=== PATIENT | female | born 1965 | race Hispanic/Latino ===

== ENCOUNTER 2024-08-17 14:53 | Inpatient (IN) | payer OTHER ==
[~2024-08-17] VITALS: Ht 160 cm; Wt 86.2 kg
[2024-08-17] MEDS ORDERED: SODIUM CHLORIDE FLUSH 10 ML SYR IV PRN (15:30)
[2024-08-17 15:38] LABS: BASOPHILS # (AUTO) 0.1 (0.0-0.1); BASOPHILS % 0.5 % (0.0-1.0); EOSINOPHILS # (AUTO) 1.3 (0.0-0.4); EOSINOPHILS % 13.3 % (0.0-6.0); HEMOGLOBIN 12.4 g/dL (12.0-16.0); LYMPHOCYTES % 40.1 % (18.0-39.1); MEAN CORPUSCULAR HEMOGLOBIN 28.8 pg (28-32); MEAN CORPUSCULAR HGB CONC 30.2 g/dL (31-35); MEAN CORPUSCULAR VOLUME 95.3 fL (81-99); MONOCYTES # (AUTO) 0.6 (0.2-0.8); MONOCYTES % 5.7 % (4.4-11.3); NEUTROPHILS % 40.1 % (38.7-80.0); PLATELET COUNT 225 x10e3/uL (140-360); RED CELL DISTRIBUTION WIDTH 14.6 % (11.7-14.4); WHITE BLOOD COUNT 10.05 x10e3/uL (4.8-10.8)
[2024-08-17 16:27] LABS: ALANINE AMINOTRANSFERASE 18 IU/L (0-55); ALBUMIN 3.6 g/dL (3.5-5.0); ALKALINE PHOSPHATASE 62 IU/L (40-150); ANION GAP 16.9 mmol/L (8-16); BILIRUBIN,TOTAL 0.8 mg/dL (0.2-1.2); BLOOD UREA NITROGEN 22 mg/dL (7-26); BUN/CREATININE RATIO 17 (6-25); CALCIUM 9.6 mg/dL (8.4-10.2); CARBON DIOXIDE 16 mmol/L (22-29); CHLORIDE 109 mmol/L (98-107); CREATININE, SERUM 1.26 mg/dL (0.57-1.11); EST GLOMERULAR FILTRATION RATE 49 ML/MIN (>=60); GLUCOSE 177 mg/dL (74-118); POTASSIUM 4.9 mmol/L (3.5-5.1); SODIUM 137 mmol/L (136-145); TOTAL PROTEIN 7.3 g/dL (6.5-8.1)
[2024-08-17 16:43] LABS: TROPONIN I < 0.001 ng/mL (0-0.300)
[2024-08-17] MEDS ORDERED: ONDANSETRON HCL INJ 2MG/ML 2ML 2 MG/ML VIAL IV PRN (17:00)
[2024-08-17] MEDS ORDERED: SODIUM CHLORIDE FLUSH 10 ML SYR INJ PRN (17:00)
[2024-08-17 17:35] VITALS: PULSE 51; RESP 14; TEMP 98.6
[2024-08-17 19:00] VITALS: BP 110/75; PULSE 60; RESP 20; TEMP 97.5; O2SAT 100
[2024-08-17 20:00] VITALS: BP 102/55; PULSE 57; RESP 16; TEMP 97.6; O2SAT 100
[2024-08-17 21:00] VITALS: BP 118/79; PULSE 63; RESP 18; TEMP 97.3; O2SAT 100
[2024-08-17] MEDS ORDERED: CETIRIZINE HCL10 MG PO (21:33)
[2024-08-17] MEDS ORDERED: ELIQUIS5 MG PO (21:33)
[2024-08-17] MEDS ORDERED: LISINOPRIL2.5 MG PO (21:33)
[2024-08-17] MEDS ORDERED: MECLIZINE HCL25 MG PO (21:33)
[2024-08-17] MEDS ORDERED: ALBUTEROL2.5 MG/3 M IH (21:33)
[2024-08-17] MEDS ORDERED: METFORMIN HCL1000 MG PO (21:33)
[2024-08-17] MEDS ORDERED: ULTRAM 50MG50 MG PO (21:33)
[2024-08-17 23:57] VITALS: BP 102/55; PULSE 57; RESP 18; TEMP 97.6; O2SAT 100
[2024-08-18] VITALS (7 sets, daily range): BP systolic 80–112; BP diastolic 40–65; PULSE 52–84; RESP 17–20; TEMP 97.2–98.4; O2SAT 95–100
[2024-08-18 06:06] LABS: ALBUMIN 3.2 g/dL (3.5-5.0); ANION GAP 13.9 mmol/L (8-16); CALCIUM 8.7 mg/dL (8.4-10.2); CREATININE, SERUM 1.89 mg/dL (0.57-1.11); POTASSIUM 4.9 mmol/L (3.5-5.1); TOTAL PROTEIN 6.4 g/dL (6.5-8.1)
[2024-08-18 06:46] LABS: BASOPHILS # (AUTO) 0.1 (0.0-0.1); BASOPHILS % 0.9 % (0.0-1.0); EOSINOPHILS # (AUTO) 1.1 (0.0-0.4); EOSINOPHILS % 11.5 % (0.0-6.0); LYMPHOCYTES # (AUTO) 3.9 (1.0-3.2); LYMPHOCYTES % 42.5 % (18.0-39.1); MEAN CORPUSCULAR HEMOGLOBIN 28.6 pg (28-32); MEAN CORPUSCULAR HGB CONC 29.7 g/dL (31-35); MEAN CORPUSCULAR VOLUME 96.2 fL (81-99); MONOCYTES # (AUTO) 0.7 (0.2-0.8); MONOCYTES % 7.7 % (4.4-11.3); NEUTROPHILS # (AUTO) 3.4 (2.1-6.9); PLATELET COUNT 184 x10e3/uL (140-360); RED BLOOD COUNT 3.43 x10e6/uL (3.6-5.1); RED CELL DISTRIBUTION WIDTH 14.6 % (11.7-14.4); WHITE BLOOD COUNT 9.27 x10e3/uL (4.8-10.8)
[2024-08-18 06:48] LABS: HEMOGLOBIN 9.8 g/dL (12.0-16.0)
[2024-08-18] MEDS: MECLIZINE HCL 12.5 MG TAB PO SCH (08:57)
[2024-08-18] MEDS: APIXABAN 5 MG TABLET PO SCH (08:58)
[2024-08-18] MEDS ORDERED: MIDODRINE HCL 5 MG TABLET PO PRN (09:15)
[2024-08-18] MEDS: SODIUM CHLORIDE 0.9% 1000ML 1,000 ML IV SCH (10:45)
[2024-08-18] MEDS: LORAZEPAM INJ 2 MG/ML VIAL IV ONE (11:38)
[2024-08-18 11:46] LABS: % IRON SATURATION 19 % (15-50); IRON 79 ug/dL (50-170); TOTAL IRON BINDING CAPACITY 416 ug/dL (261-478); TRANSFERRIN 297 mg/dL (180-382)
[2024-08-18 11:53] LABS: FOLATE 32.3 ng/mL (7.0-15.4)
[2024-08-19] VITALS (8 sets, daily range): BP systolic 100–134; BP diastolic 46–70; PULSE 49–62; RESP 16–18; TEMP 97.6–98.4; O2SAT 99–100
[2024-08-19 05:56] LABS: BASOPHILS % 0.4 % (0.0-1.0); EOSINOPHILS # (AUTO) 0.8 (0.0-0.4); EOSINOPHILS % 11.9 % (0.0-6.0); HEMOGLOBIN 9.5 g/dL (12.0-16.0); LYMPHOCYTES # (AUTO) 2.8 (1.0-3.2); LYMPHOCYTES % 40.2 % (18.0-39.1); MEAN CORPUSCULAR HEMOGLOBIN 28.4 pg (28-32); MEAN CORPUSCULAR HGB CONC 29.7 g/dL (31-35); MEAN CORPUSCULAR VOLUME 95.8 fL (81-99); MONOCYTES # (AUTO) 0.5 (0.2-0.8); MONOCYTES % 6.5 % (4.4-11.3); NEUTROPHILS # (AUTO) 2.8 (2.1-6.9); NEUTROPHILS % 40.4 % (38.7-80.0); PLATELET COUNT 161 x10e3/uL (140-360); RED BLOOD COUNT 3.34 x10e6/uL (3.6-5.1); RED CELL DISTRIBUTION WIDTH 13.9 % (11.7-14.4); WHITE BLOOD COUNT 6.96 x10e3/uL (4.8-10.8)
[2024-08-19 06:28] LABS: ANION GAP 12.5 mmol/L (8-16); CALCIUM 8.4 mg/dL (8.4-10.2); CREATININE, SERUM 1.24 mg/dL (0.57-1.11); POTASSIUM 4.5 mmol/L (3.5-5.1)
[2024-08-19 07:04] LABS: CHOL/HDL RATIO 3.6 (3.0-3.6); PHOSPHORUS 4.1 MG/DL (2.3-4.7)
[2024-08-19 07:09] LABS: MAGNESIUM 1.1 MG/DL (1.3-2.1)
[2024-08-19 07:29] LABS: THYROID STIMULATING HORMONE 0.782 uIU/mL (0.350-4.940)
[2024-08-19] MEDS: MAGNESIUM SULFATE 2GM/50ML 50 ML IV SCH (10:16)
[2024-08-19] MEDS: ACETAMINOPHEN 325 MG TAB PO PRN (11:45)
[2024-08-19] MEDS ORDERED: ONDANSETRON HCL 4 MG ORAL DISINTEGRATING TAB PO PRN (13:45)
[2024-08-20] VITALS: BP 154/88; PULSE 58; RESP 17; TEMP 98.1; O2SAT 100
[2024-08-20 04:00] VITALS: BP 117/67; PULSE 62; RESP 17; TEMP 98; O2SAT 100
[2024-08-20 05:58] LABS: MAGNESIUM 1.8 MG/DL (1.3-2.1); PHOSPHORUS 3.7 MG/DL (2.3-4.7)
[2024-08-20 06:28] LABS: ANION GAP 12.3 mmol/L (8-16); CALCIUM 8.8 mg/dL (8.4-10.2); POTASSIUM 4.3 mmol/L (3.5-5.1)
[2024-08-20 08:00] VITALS: BP 121/66; PULSE 64; RESP 18; TEMP 97.8; O2SAT 100
[2024-08-20 10:56] VITALS: BP 121/66; PULSE 64; RESP 18; TEMP 97.8; O2SAT 100
[2024-08-21] MEDS ORDERED: PANTOPRAZOLE SOD 40 MG TABEC PO SCH (07:30)
== END 2024-08-20 11:34 | disposition home or self-care (01) | DRG 310 ==
LOC: ER 15:15 → ERHOLD 16:58 → MED/SURG2 18:06
PROVIDERS: ADMIT Internal Medicine; ATTEND Internal Medicine
DX: I48.91 Unspecified atrial fibrillation (principal); R00.1 Bradycardia, unspecified; R42 Dizziness and giddiness; I10 Essential (primary) hypertension; R55 Syncope and collapse; E11.42 Type 2 diabetes mellitus with diabetic polyneuropathy; E78.5 Hyperlipidemia, unspecified; F41.9 Anxiety disorder, unspecified; E66.01 Morbid (severe) obesity due to excess calories; Z68.33 Body mass index [BMI] 33.0-33.9, adult; Z79.01 Long term (current) use of anticoagulants; Z90.49 Acquired absence of other specified parts of digestive tract; Z90.711 Acquired absence of uterus with remaining cervical stump; Z88.0 Allergy status to penicillin; Z88.1 Allergy status to other antibiotic agents; Z88.5 Allergy status to narcotic agent; Z91.010 Allergy to peanuts; Z91.018 Allergy to other foods; Z79.84 Long term (current) use of oral hypoglycemic drugs
CPT/HCPCS: 36415; 70551; 71045; 80048; 80053; 80061; 82607; 82746; 83036; 83540; 83735; 83880; 84100; 84443; 84466; 84484; 85025; 93005; 93306; 93880; 94760; 99284; J2060; J2470; J3475; J7030